=== PATIENT | female | born 1970 | race Caucasian/White ===

== ENCOUNTER 2016-05-13 15:58 | Emergency (ER) | payer OTHER | END 2016-05-13 16:26 | disposition left against medical advice (07) | LOC: CED 15:58 | DX: R22.0 Localized swelling, mass and lump, head (principal); Z53.21 Procedure and treatment not carried out due to patient leaving prior to being seen by health care provider ==

== ENCOUNTER 2016-07-20 14:14 | Emergency (ER) | payer OTHER | END 2016-07-20 14:25 | disposition left against medical advice (07) | LOC: CED 14:14 | DX: Z53.21 Procedure and treatment not carried out due to patient leaving prior to being seen by health care provider (principal) ==